=== PATIENT | male | born 1975 | race African-American/Black ===

== ENCOUNTER → 2021-12-18 | Outpatient (CLI) | payer BC ==
[2021-09-05 11:00] VITALS: BP 107/61
[~2021-12-18] MED LIST: APIX5TAB PO
--- NOTE | 2021-12-18 08:49 | RAD ---
EXAM: Left lower extremity venous Doppler. HISTORY: Left lower extremity pain/swelling. COMPARISON: 09/03/2021. FINDINGS: Grayscale and Doppler analysis of the left lower extremity deep venous system was performed with graded compression and augmentation. The common femoral, greater saphenous, superficial femoral , popliteal and calf veins were assessed. There is no evidence of deep venous thrombosis. The previously noted superficial femoral, popliteal a nd calf vein thrombus has resolved. IMPRESSION: 1. Resolution of previously noted deep venous thrombosis. Electronically signed by: Suman Rea MD (12/18/2021 8:47 AM) [id number]
== END ==
LOC: US 07:44
PROVIDERS: ATTEND Family Medicine
DX: R60.0 Localized edema (principal); Z86.718 Personal history of other venous thrombosis and embolism
CPT/HCPCS: 93971